=== PATIENT | male | born 1965 | race Caucasian/White ===

== ENCOUNTER 2023-09-25 06:51 | Day surgery (SDC) | payer BC ==
[~2023-09-25] VITALS: Ht 182.9 cm; Wt 82.5 kg
[~2023-09-25 06:51] MED LIST: LR 1,000 ML IV SCH; Ondansetron 4 MG/2 ML VIAL IV PRN
[2023-09-25] MEDS ORDERED: CENTRUM MEN'S (07:19)
[2023-09-25] MEDS ORDERED: NATURAL MAGNES200 MG PO (07:20)
[2023-09-25] MEDS ORDERED: OMEGA-3 1000 MG1 CAP PO (07:20)
[2023-09-25] MEDS ORDERED: fentaNYL 50 MCG/ML 2 ML VIAL ONE (08:03)
[2023-09-25] MEDS ORDERED: Lidocaine PF 2% (20 MG/ML) 5 ML VIAL ONE (08:11)
[2023-09-25 08:43] VITALS: BP 93/67; PULSE 60; TEMP 97.8
[2023-09-25 08:58] VITALS: BP 97/59; PULSE 64
[2023-09-25 09:05] VITALS: BP 96/74; PULSE 60
--- NOTE | 2023-09-25 09:10 | NUR ---
0843 RETURNS TO ROOM 5 PER CART. AWAKE, ALERT. RESP UNLABORED. AMBULATES TO RECLINER WITH STANDBY ASSIST. DENIES NAUSEA OR ABD PAIN. VITAL SIGNS OBTAINED. CALL LIGHT AT SIDE. IN ROOM 0855 TOLERATES PO WATER WITHOUT NAUSEA. DISCHARGE INSTRUCTIONS REVIEWED. PATIENT VERBALIZES UNDERSTANDING. COPY PROVIDED IN DISCHARGE FOLDER 0903 DR. ANDERS HERE TO VISIT WITH PATIENT 0906 DRESSES SELF
[2023-09-25 13:14] VITALS: BP 105/77; PULSE 76; TEMP 97.8
--- NOTE | 2023-09-25 13:23 | NUR ---
0712 Pt ambulatory to bay with a steady gait, breathing even and unlabored. Pt is alert and oriented, accompanied by his . Consents reviewed and signed by pt. IV established. LR infusing via gravity. Call light in reach. Warm blanket provided.
== END 2023-09-25 09:10 | disposition home or self-care (01) ==
LOC: SDCO 06:51
DX: Z12.11 Encounter for screening for malignant neoplasm of colon (principal); D12.4 Benign neoplasm of descending colon; F17.220 Nicotine dependence, chewing tobacco, uncomplicated
CPT/HCPCS: J2704; J3010; J7120